=== PATIENT | female | born 1965 | race Caucasian/White ===

== ENCOUNTER 2021-01-14 08:57 | Observation (INO) ==
[2021-01-14] MEDS ORDERED: 0.9 % Sodium Chloride 1,000 ML IVC ONE (09:11)
[2021-01-14] MEDS ORDERED: Isovue-370 500 ML BOTTLE IVP ONE (09:11)
[2021-01-14 09:25] LABS: Hematocrit 45.5 % (35.3-44.9); Hemoglobin 14.4 g/dL (11.5-15.4); Mean Corpuscular HGB Conc 31.6 g/dL (31.6-35.5); Mean Corpuscular Hemoglobin 28.1 pg (28.0-33.3); Mean Corpuscular Volume 88.9 fL (83.0-100.0); Mean Platelet Volume 9.3 fL (9.4-12.4); Platelet Count 284 K/mcL (140-400); Red Blood Count 5.12 M/mcL (3.82-4.97); Red Cell Distribution Width 12.1 % (11.5-14.5); White Blood Count 9.5 K/mcL (4.3-11.1)
[2021-01-14 09:32] LABS: INR 0.9; Prothrombin Time 10.5 Seconds (9.4-12.1)
[2021-01-14 09:35] LABS: Activated Partial Thrombo Time 35.6 Seconds (26.0-36.0)
[2021-01-14 09:52] LABS: Alanine Aminotransferase 13 Units/L (7-52); Albumin 4.2 g/dL (3.5-5.7); Albumin/Globulin Ratio 1.6 (1.1-2.2); Alkaline Phosphatase 73 Units/L (34-104); Aspartate Amino Transferase 11 Units/L (13-39); BUN/Creatinine Ratio 22 (6-26); Bilirubin,Direct 0.1 mg/dL (0.0-0.2); Bilirubin,Indirect 0.6 mg/dL (0.0-1.0); Bilirubin,Total 0.7 mg/dL (0.3-1.0); Blood Urea Nitrogen 16 mg/dL (6-20); Calcium 9.3 mg/dL (8.6-10.3); Carbon Dioxide 29 mEq/L (23-29); Chloride 108 mEq/L (98-107); Globulin 2.6 g/dL (2.4-3.5); Glucose 111 mg/dL (70-105); Osmolality,Calculated 294 (280-300); Potassium 4.2 mEq/L (3.5-5.1); Sodium 141 mEq/L (136-145); Total Protein 6.8 g/dL (6.4-8.9); Troponin I < 0.03 ng/mL (< 0.04); eGFR For African Americans > 60 (> 60); eGFR For Non-African Americans > 60 (> 60)
[2021-01-14] MEDS ORDERED: Aspirin 325 MG TABLET PO ONE (10:02)
[2021-01-14 10:36] LABS: Influenza A PCR Negative (Negative); Influenza B PCR Negative (Negative); Resp. Syncytial Virus PCR Negative (Negative); SARS-CoV-2 by PCR (In House) Negative (Negative)
[2021-01-14 10:52] LABS: Bilirubin,Urine Negative (Negative); Blood,Urine Trace (Negative); Clarity,Urine Clear (Clear); Color,Urine Colorless (Yellow); Glucose,Urine (UA) Normal (Normal); Ketones,Urine Negative (Negative); Leukocyte Esterase,Urine Negative (Negative); Nitrite,Urine Negative (Negative); Protein,Urine Negative (Neg-Trace); RBC,Urine 0-3 per hpf (0-3); Specific Gravity,Urine > 1.030 (1.010-1.025); Squamous Epithelial Cell,Urine Few per hpf (None-Few); Urobilinogen,Urine Normal (Normal); WBC,Urine 0-3 per hpf (0-3)
[2021-01-14 10:53] LABS: Amphetamine Screen,Urine Negative ng/mL (Cutoff=1000); Barbiturate Screen,Urine Negative ng/mL (Cutoff=200); Benzodiazepines Screen,Urine Negative ng/mL (Cutoff=300); Cannabinoid Screen,Urine Negative ng/mL (Cutoff = 50); Cocaine Screen,Urine Negative ng/mL (Cutoff= 300); Opiate Screen,Urine Negative ng/mL (Cutoff=300)
[2021-01-14 10:54] LABS: Phencyclidine Screen,Urine Negative ng/mL (Cutoff=25)
[2021-01-14] MEDS ORDERED: Melatonin 3 MG TABLET PO PRN (14:27)
[2021-01-14] MEDS ORDERED: Ondansetron 4 MG/2 ML VIAL IVP PRN (14:27)
[2021-01-14] MEDS ORDERED: Acetaminophen 325 MG TABLET PO PRN (14:27)
[2021-01-14] MEDS ORDERED: Nicotine 2 MG GUM BC PRN (14:36)
[2021-01-14 15:01] LABS: Estimated Average Glucose 117 mg/dl; Hemoglobin A1C 5.7 %
[2021-01-14 15:26] LABS: Chol/HDL Ratio 4.1 (0-4.9); Cholesterol 168 mg/dL (< 200); HDL Cholesterol 41 mg/dL (40-59); LDL Cholesterol,Calculated 103 mg/dL (< 100); Triglycerides 119 mg/dL (< 150)
[2021-01-14] MEDS: Nicotine 21 MG PATCH.TD24 TD SCH (17:39)
[2021-01-15] MEDS ORDERED: *HR* Enoxaparin 40 MG/0.4 ML SYRINGE SQ SCH (06:00)
[2021-01-15] MEDS ORDERED: lisinopriL 10 MG TABLET PO SCH (09:00)
[2021-01-15] MEDS ORDERED: Aspirin Enteric Coated 81 MG Tablet PO SCH (09:00)
[2021-01-15] MEDS: Nicotine 21 MG PATCH.TD24 TD SCH (09:02)
[2021-01-15 11:40] VITALS: TEMP 97.9
[2021-01-15 12:16] VITALS: BP 129/77
[2021-01-15 12:19] VITALS: PULSE 58; O2SAT 94
== END 2021-01-15 14:09 | disposition home or self-care (01) ==
LOC: EMEROOARM 08:57 → 3ANU 08:57 → SUATTDRO 15:16 → 3ANU 16:48
PROVIDERS: ADMIT Internal Medicine; ATTEND Internal Medicine